=== PATIENT | male | born 1990 | race Caucasian/White ===

== ENCOUNTER 2020-07-18 06:47 | Outpatient (NON) | payer OTHER, SELFPAY ==
[2020-07-18 22:13] LABS: SARS-CoV-2 RNA PCR Negative
== END 2020-07-18 06:48 ==
LOC: ANHCOVIDDT 06:56
PROVIDERS: PCP Family Medicine Sports Medicine; Visit Provider Family Medicine Sports Medicine
DX: Z20.828 Contact with and (suspected) exposure to other viral communicable diseases (principal); R50.9 Fever, unspecified; R51.9 Headache, unspecified
CPT/HCPCS: 87635; C9803; U0003